=== PATIENT | male | born 1995 | race Caucasian/White ===

== ENCOUNTER 2016-08-10 23:17 | Emergency (ER) | payer OTHER ==
[2016-08-10 23:30] VITALS: BP 130/80; PULSE 69; TEMP 97.9; BMI 19.1
--- NOTE | 2016-08-10 23:59 | PDOC ---
History of Present Illness - General History Source: Patient Exam Limitations: No Limitations - History of Present Illness Initial Comments: 08/11/16 00:16 The patient is a 20 year old male with no significant past medical history who presents to the ED with small laceration to the tip of the left thumb prior to arrival. Patient reports he was cooking and as he went to put the knife away, he sustained a superficial wound to the tip of the left thumb. Patient is unsure if tetanus is up to date. The patient denies fever, chills, cough, SOB, chest pain, and palpitations. The patient denies abdominal pain, nausea, vomiting, and diarrhea. <Jeannette Crooks - Last Filed: 08/11/16 00:16> - General History Source: Patient <Robi Faustin - Last Filed: 08/11/16 00:39> - General Chief Complaint: Laceration Stated Complaint: LACERATION Time Seen by Provider: 08/10/16 23:58 Past History <Jeannette Crooks - Last Filed: 08/11/16 00:16> - Psycho/Social/Smoking Cessation Hx Suicidal Ideation: No Smoking History: Never smoked Number of Cigarettes Smoked Daily: 0 Information on smoking cessation initiated: No Hx Alcohol Use: No Drug/Substance Use Hx: No <Robi Faustin - Last Filed: 08/11/16 00:39> - Past Medical History Allergies/Adverse Reactions: Allergies Allergy/AdvReac Type Severity Reaction Status Date / Time No Known Allergies Allergy Verified 08/10/16 23:27 Home Medications: Ambulatory Orders NK [No Known Home Medication] 08/10/16 Review of Systems - Review of Systems Able to Perform ROS?: Yes Comments:: 08/11/16 00:17 CONSTITUTIONAL: Absent: fever, no chills, no fatigue EYES: Absent: visual changes ENT: Absent: ear pain, no sore throat CARDIOVASCULAR: Absent: chest pain, no palpitations RESPIRATORY: Absent: cough, no SOB GI: Absent: abdominal pain, no nausea, no vomiting, no constipation, no diarrhea GENITOURINARY: Absent: dysuria, no frequency, no hematuria MUSKULOSKELETAL: Absent: back pain, no arthralgia, no myalgia SKIN: +superficial wound to the tip of the left thumb Absent: rash NEURO: Absent: headache <Jeannette Crooks - Last Filed: 08/11/16 00:16> *Physical Exam - Vital Signs Last Vital Signs Temp Pulse Resp BP Pulse Ox 97.9 F 69 14 130/80 99 08/10/16 23:28 08/10/16 23:28 08/10/16 23:28 08/10/16 23:28 08/10/16 23:28 - Physical Exam Comments: 08/11/16 00:17 GENERAL: Well-appearing, well-nourished. No apparent distress. HEENT: Normocephalic, atraumatic. PERRL, EOM intact. CARDIOVASCULAR: Normal S1, S2. Regular rate and rhythm. PULMONARY: Clear to auscultation bilaterally. ABDOMEN: Soft, non-distended, non-tender. EXTREMITIES: Normal ROM in all four extremities. No gross deformities. SKIN: Warm, dry. No rash. Superficial linear laceration in the middle of pad of left thumb starting from tip. NEUROLOGICAL: No focal neurological deficits. <Jeannette Crooks - Last Filed: 08/11/16 00:16> - Vital Signs Last Vital Signs Temp Pulse Resp BP Pulse Ox 97.9 F 69 14 130/80 99 08/10/16 23:28 08/10/16 23:28 08/10/16 23:28 08/10/16 23:28 08/10/16 23:28 <Robi Faustin - Last Filed: 08/11/16 00:39> Medical Decision Making - Medical Decision Making 08/11/16 00:14 Dr. Faustin: The scribe's documentation has been prepared under my direction and personally reviewed by me in its entirery. I confirm that the note above accurately reflects all work, treatment, procedures, and medical decision making performed by me. Wound required not sutures. Pt advised to keep wound clean and dry. <Robi Faustin - Last Filed: 08/11/16 00:39> *DC/Admit/Observation/Transfer - Attestations Scribe Attestion: 08/11/16 00:17 Documentation prepared by Jeannette Crooks, acting as medical equipment repairer for Robi Faustin MD <Jeannette Crooks - Last Filed: 08/11/16 00:16> - Discharge Dispostion Admit: No <Robi Faustin - Last Filed: 08/11/16 00:39> Diagnosis at time of Disposition: Laceration of left thumb Qualifiers: Encounter type: initial encounter Qualified Code(s): S61.012A - Laceration without foreign body of left thumb without damage to nail, initial encounter - Discharge Dispostion Disposition: HOME Condition at time of disposition: Stable - Patient Instructions Printed Discharge Instructions: How to Care for a Surgical Wound Additional Instructions: keep wound clean and dry. wAsh with soap and water
[2016-08-11] MEDS ORDERED: TETANUS AND DIPHTHERIA TOXOID 0.5 ML DISP.SYRIN IM ONE (00:08)
== END 2016-08-11 00:46 | disposition home or self-care (01) ==
LOC: JER 23:17
PROC: 3E0234Z Introduction of Serum, Toxoid and Vaccine into Muscle, Percutaneous Approach (ICD-10-PCS; principal; 2016-08-10)
DX: S61.012A Laceration without foreign body of left thumb without damage to nail, initial encounter (principal); W29.1XXA Contact with electric knife, initial encounter; Y93.G1 Activity, food preparation and clean up; Y92.018 Other place in single-family (private) house as the place of occurrence of the external cause; Y99.8 Other external cause status
CPT/HCPCS: 99283-25